=== PATIENT | female | born 1970 | race Caucasian/White ===

== ENCOUNTER → 2016-11-29 | Outpatient (CLI) | payer OTHER ==
--- NOTE | 2016-11-29 13:41 | MRI ---
HISTORY: Low back pain, history of surgery Study: MRI lumbar spine without contrast Comparison: None Technique: Multiplanar multi-sequence MRI of the lumbar spine was obtained. Sagittal T1, sagittal T 2, and stir weighted images, axial T1, and axial T2 images were obtained. Findings: The patient is status post L2, 3 , 4 posterior fusion. Pedicle screws and disc spacers are present a t those levels. The patient is status post L5-S1 fusion with a disc spacer present. The lumbar spine demonstrates normal alignment with the expected signal characteristics of the bone marrow. The con us of the cord terminates normally. T12 -- L1: No evidence for compressive disc disease. The neural foramina are patent. The joints are normal. L1 -- L2: No evidence for compressive disc disease. The neural foramina are patent. Bilateral facet arthropathy is present. L2 -- L3: Status post fusion. Artifacts are created by the hardware. There is no evidence for compre ssive disc disease. The neural foramina are patent. L3 -- L4: Status post fusion the neural foramina are patent. Bilateral facet arthropathy is present. L4 -- L5: Broad-based disc protrusion is present. There is a small annular rent present. It contribu tito to only mild lateral recess narrowing. The joints are normal. L5 -- S1: Status post fusion. Spondylitic change contributes to foraminal narrowing bilaterally slig htly worse on the right than the left. IMPRESSION: As above Reported By:
--- NOTE | 2016-11-29 13:45 | MRI ---
HISTORY: Thoracic back pain Study: MRI thoracic spine without contrast Comparison: None Technique: Multi planar multi sequence non contrast imaging Findings: The prevertebral soft tissues are normal. The vertebral body alignment and bone signal is normal. No compression fractures are identified. The intervertebral discs appear well hydrated. There is no ev idence for compressive disc disease or compressive spondylitic change at any level. No syrinx is pre sent. IMPRESSION: No significant abnormality identified Reported By:
--- NOTE | 2016-11-29 14:04 | RAD ---
LUMBAR SPINE RADIOGRAPHS CLINICAL HISTORY: 46-year-old female with chronic low back pain. COMPARISON: MR lumbar spine this date. FINDINGS: The most caudad, fully-formed intervertebral disc will be labeled L5-S1 for the purpose of this dictation. 4 views of the lumbar spine were obtained. There are 5 nonrib-bearing lumbar type v ertebral bodies. Status post posterior spinal fusion L2-L4 with interbody cages with interbody cage and fusion construct L5-S1. Laparoscopic gastric banding has previously been performed with right up per quadrant surgical clips. Straightening of lumbar lordosis as imaged. Significant loss of disc sp jozef L5-S1 and to a lesser degree L2-L4 with multilevel facet hypertrophy and no evidence of hardware failure or acute fracture/malalignment of lumbar spine. Vertebral body heights are maintained. The re is no sacroiliac diastasis. IMPRESSION: Multilevel degenerative change status post spinal fusion as described without evidence of hardware f ailure or acute osseous fracture/malalignment. Reported By:
--- NOTE | 2016-11-29 15:30 | CT ---
HISTORY: Low back pain Study: CT lumbar spine without contrast Comparison: MR lumbar spine same date Technique: Axial non contrast images with coronal and sagittal reformats. Dose reduction procedures were use dwi MA/kv adjusted for body size. Findings: The patient is status post L2-3, L3-4, L5-S1 posterior fusion with hardware and disc spacers present . The vertebral bodies are of average height peer no definite compression fractures are identified. The alignment is normal. The hardware appears intact. The pedicles, spinous processes, and posterior elements appear intact. The disc levels were evaluated as follows: L1-2 level: No evidence for compressive disc disease. The neural foramina are patent. The joints ar e mild facet arthropathy is present L2-3 level: Status post fusion. The neural foramina are patent. The joints appear fused. L3-4 level: Status post fusion. The neural foramina are patent. The joints are within normal limits. L4-5 level: There is disc degeneration with vacuum phenomenon present. There is circumferential disk bulging which effaces the thecal sac but does not contribute to significant foraminal narrowing. Th e joints are normal peer L5-S1 level: Status post fusion. Spondylitic change contributes to foraminal narrowing bilaterally. IMPRESSION: As above Reported By:
== END | disposition home or self-care (01) | DRG 552 ==
LOC: RAD 11:56
PROVIDERS: ATTEND Neurological Surgery
DX: M54.5 Low back pain (principal); M54.6 Pain in thoracic spine; M47.896 Other spondylosis, lumbar region; Z98.1 Arthrodesis status
CPT/HCPCS: 72110; 72131; 72146; 72148

== ENCOUNTER → 2017-01-02 | Outpatient (CLI) | payer OTHER ==
--- NOTE | 2017-01-02 13:22 | NM ---
Whole-body bone scan Indication: Lower back pain with history of prior fusion Comparison: Lumbar spine radiograph November 29, 2016 Technique: Whole-body bone scan was performed with selected spot views of the spine following intrave nous injection of 24 mCi Tc-MDP. Findings: No suspicious bone uptake is identified. There is degenerative-type uptake about the bilate ral shoulders, right greater than left knees, bilateral ankles, SI joints and lumbar spine. Physiolog ic uptake is noted within the kidneys and urinary bladder. Impression: Degenerative type uptake within the lower lumbar spine and multiple additional joints, as detailed ab ove. Otherwise, unremarkable whole-body bone scan. Reported By:
== END ==
LOC: RAD 08:58
PROVIDERS: ATTEND Neurological Surgery
DX: M47.896 Other spondylosis, lumbar region (principal); M54.5 Low back pain
CPT/HCPCS: 78306